=== PATIENT | female | born 2000 | race Caucasian/White ===

== ENCOUNTER 2019-11-09 12:18 | Emergency (ER) | payer OTHER ==
[~2019-11-09] VITALS: Ht 175.3 cm; Wt 81.6 kg
[2019-11-09 12:25] VITALS: BP 112/65
[2019-11-09] MEDS ORDERED: diphenhydrAMINE HCL 25 MG CAPSULE ONE (12:41)
[2019-11-09] MEDS ORDERED: predniSONE 20 MG TABLET ONE (12:41)
[2019-11-09] MEDS ORDERED: FAMOTIDINE (20 MG) 20 MG TABLET ONE (12:41)
--- NOTE | 2019-11-09 12:42 | NUR ---
PT GIVEN BENADRYL 25MG PO X 1 DOSE, PEPCID 40MG POX 1 DOSE AND PREDNISONE 60MG PO X 1 DOSE GIVEN PER MD'S ORDER. UNABLE TO SIGN OFF MEDICATION ON [employer].
--- NOTE | 2019-11-09 12:49 | NUR ---
Patient discharged to home in stable condition. Written and verbal after care instructions given. Patient verbalizes understanding of instruction. Pt ambulatory with a steady gait
[2019-11-09] MEDS ORDERED: FAMOTIDINE (20 MG) 20 MG TABLET PO ONE (13:00)
[2019-11-09] MEDS ORDERED: diphenhydrAMINE HCL 50 MG CAPSULE PO ONE (13:00)
[2019-11-09] MEDS ORDERED: predniSONE 10 MG TABLET PO ONE (13:00)
--- NOTE | 2019-11-12 12:42 | NUR ---
Eloy bauman in [facility] - 11/12/19 at 1537 by KATHY PT GIVEN BENADRYL 25MG PO X 1 DOSE, PEPCID 40MG POX 1 DOSE AND PREDNISONE 60MG PO X 1 DOSE GIVEN PER MD'S ORDER. UNABLE TO SIGN OFF MEDICATION ON [employer].
== END 2019-11-09 12:55 | disposition home or self-care (01) ==
LOC: ER 12:24
DX: L50.8 Other urticaria (principal)
CPT/HCPCS: 99284; J7512; Q0163